=== PATIENT | female | born 1945 | race Caucasian/White ===

== ENCOUNTER 2019-01-12 15:44 | Inpatient (IN) | payer MEDICARE, MEDICAID ==
[~2019-01-12] VITALS: Ht 266.7 cm; Wt 101.2 kg
[~2019-01-12 15:44] MED LIST: CEPH-419 PO; LEVO112T25 PO; LOSA25TA96 PO
[2019-01-12 17:29] LABS: BASOPHILS # (AUTO) 0.1 X10'3 (0-0.2); BASOPHILS % (AUTO) 1.1 % (0-1); EOSINOPHILS % (AUTO) 0.4 % (0-6); HEMATOCRIT 45.6 % (35.0-45.0); HEMOGLOBIN 15.6 g/dl (12.0-16.0); LYMPHOCYTES % (AUTO) 34.7 % (21-51); MEAN CORPUSCULAR HEMOGLOBIN 32.8 PG (27.0-31.0); MEAN CORPUSCULAR HGB CONC 34.2 g/dL (33.0-36.5); MEAN PLATELET VOLUME 7.1 FL (7.4-10.4); MONOCYTES # (AUTO) 0.6 X10'3 (0-0.9); MONOCYTES % (AUTO) 6.4 % (2-12); NEUTROPHILS % (AUTO) 57.4 % (42-75); PLATELET COUNT 278 X10'3 (140-440); RED BLOOD COUNT 4.75 X10'6 (4.20-5.60); RED CELL DISTRIBUTION WIDTH 13.5 % (11.5-14.5); WHITE BLOOD COUNT 8.7 X10'3 (4.5-11.0)
[2019-01-12 17:44] LABS: ALANINE AMINOTRANSFERASE 37 U/L (12-78); ALBUMIN 3.4 G/DL (3.4-5.0); ALBUMIN/GLOBULIN RATIO 1.1 (1.1-1.5); ALKALINE PHOSPHATASE 89 IU/L (46-116); ANION GAP 8 (8-16); ASPARTATE AMINO TRANSFERASE 15 U/L (10-37); BILIRUBIN,TOTAL 0.3 MG/DL (0.1-1.0); BLOOD UREA NITROGEN 11 MG/DL (7-18); BUN/CREATININE RATIO 14.5 (6.6-38.0); CALCIUM 9.4 MG/DL (8.5-10.1); CHLORIDE 106 MMOL/L (99-107); CREATININE 0.76 MG/DL (0.40-0.90); GLUCOSE 88 MG/DL (70-104); POTASSIUM 3.7 MMOL/L (3.5-5.1); SODIUM 142 MMOL/L (135-145); TOTAL CARBON DIOXIDE 27.6 MMOL/L (24-32); TOTAL PROTEIN 6.6 G/DL (6.4-8.2); eGFR 74 ML/MIN
[2019-01-12 17:49] LABS: MAGNESIUM 1.7 MG/DL (1.5-2.4)
--- NOTE | 2019-01-12 17:56 | NUR ---
PAGED DR VIDAL BUT SHE SUGGESTED WE WAIT TO PAGE THE NIGHT DUE TO HER NOT HAVING TIME FOR ANOTHER ADMIT SO WE WILL WAIT UNTIL 7PM.
[2019-01-12] MEDS ORDERED: ESTR0.5T PO (18:03)
[2019-01-12] MEDS ORDERED: OMEP-50 PO (18:03)
--- NOTE | 2019-01-12 19:21 | NUR ---
CALLED TO PT'S BEDSIDE, PT C/O "FEELING FUNNY" WHEN HEART RATE DROPS. PT DENIES CP OR SOB, BUT STATES HAS "PRESSURE". O2 PLACED AT 2L FOR PRESSURE, AWAITING HOSPITALIST
--- NOTE | 2019-01-12 19:37 | NUR ---
MEAL TRAY PROVIDED WITH WATER
[2019-01-12] MEDS ORDERED: potassium Cl 20 mEq SR tablet PO PRN ×2 (19:40)
[2019-01-12] MEDS ORDERED: mag hydrox/Alum hydrox/simeth 30ml oral suspension PO PRN (19:40)
[2019-01-12] MEDS ORDERED: magnesium 2GM in 50ml NS 50 ML IV PRN (19:40)
[2019-01-12] MEDS ORDERED: potassium Cl 40MEQ/NS 500ml 500 ML IV PRN ×2 (19:40)
[2019-01-12] MEDS ORDERED: docusate sod 100mg capsule PO PRN (19:40)
[2019-01-12] MEDS ORDERED: acetaminophen 325mg tablet PO PRN (19:40)
[2019-01-12] MEDS ORDERED: magnesium 4gm in 100ml NS 100 ML IV PRN (19:40)
[2019-01-12] MEDS ORDERED: ondansetron/PF 4mg/2ml inj IV PRN (19:40)
--- NOTE | 2019-01-12 19:40 | NUR ---
PT SITTING UP AT BEDSIDE EATING DINNER, NO FURTHER EPISODES OF "PRESSURE" NOTED BY PT OR FAMILY.
[2019-01-12] MEDS ORDERED: nicotine 21mg patch - 24 hr TD ONE (21:25)
[2019-01-12] MEDS ORDERED: iohexol 350MG/ML 100ml bottle IV ONE (21:36)
[2019-01-12] MEDS: normal saline 1000ml 1,000 ML IV SCH (23:20)
[2019-01-13] VITALS (24 sets, daily range): BP systolic 112–153; BP diastolic 44–85
--- NOTE | 2019-01-13 00:30 | NUR ---
Patient in room . I have received report from Yudelka THOMAS and had the opportunity to ask questions and assume patient care.
--- NOTE | 2019-01-13 02:53 | NUR ---
Heart block type 2 noted,
[2019-01-13 05:50] LABS: ALANINE AMINOTRANSFERASE 29 U/L (12-78); ALKALINE PHOSPHATASE 81 IU/L (46-116); ANION GAP 8 (8-16); ASPARTATE AMINO TRANSFERASE 13 U/L (10-37); BASOPHILS # (AUTO) 0.1 X10'3 (0-0.2); BASOPHILS % (AUTO) 1.2 % (0-1); BILIRUBIN,TOTAL 0.4 MG/DL (0.1-1.0); BLOOD UREA NITROGEN 14 MG/DL (7-18); BUN/CREATININE RATIO 15.9 (6.6-38.0); CALCIUM 9.4 MG/DL (8.5-10.1); CHLORIDE 107 MMOL/L (99-107); CREATININE 0.88 MG/DL (0.40-0.90); EOSINOPHILS # (AUTO) 0.1 X10'3 (0-0.9); EOSINOPHILS % (AUTO) 0.7 % (0-6); GLUCOSE 97 MG/DL (70-104); HEMATOCRIT 41.6 % (35.0-45.0); HEMOGLOBIN 14.1 g/dl (12.0-16.0); LYMPHOCYTES # (AUTO) 3.2 X10'3 (1.1-4.8); LYMPHOCYTES % (AUTO) 41.8 % (21-51); MEAN CORPUSCULAR HEMOGLOBIN 32.6 PG (27.0-31.0); MEAN CORPUSCULAR HGB CONC 33.8 g/dL (33.0-36.5); MEAN CORPUSCULAR VOLUME 96.3 FL (78-98); MEAN PLATELET VOLUME 7.4 FL (7.4-10.4); MONOCYTES # (AUTO) 0.6 X10'3 (0-0.9); MONOCYTES % (AUTO) 8.3 % (2-12); NEUTROPHILS # (AUTO) 3.7 X10'3 (1.8-7.7); PLATELET COUNT 237 X10'3 (140-440); POTASSIUM 3.9 MMOL/L (3.5-5.1); RED BLOOD COUNT 4.32 X10'6 (4.20-5.60); RED CELL DISTRIBUTION WIDTH 13.8 % (11.5-14.5); SODIUM 141 MMOL/L (135-145); TOTAL CARBON DIOXIDE 26.1 MMOL/L (24-32); WHITE BLOOD COUNT 7.7 X10'3 (4.5-11.0); eGFR 63 ML/MIN
[2019-01-13 05:51] LABS: CHOL/HDL RATIO 3.8 (0.00-4.99); CHOLESTEROL 180 MG/DL (0-200); HDL CHOLESTEROL 47 MG/DL (35-60); LDL CHOLESTEROL 121 MG/DL (50-100); MAGNESIUM 1.8 MG/DL (1.5-2.4); TRIGLYCERIDES 106 MG/DL (20-135)
--- NOTE | 2019-01-13 06:25 | NUR ---
Patient in room PCU 3026. I have received report from Zee THOMAS and had the opportunity to ask questions and assume patient care.
--- NOTE | 2019-01-13 06:47 | NUR ---
Problems reprioritized. Patient report given, questions answered & plan of care reviewed with Janet THOMAS.
--- NOTE | 2019-01-13 07:49 | NUR ---
PAGER ID: [phone] Dr. Alan MESSAGE: Room 3026B Alayna Quinones low 40's call nurse Glenna [facility] 6024, received call back to give Atropine 0.5mg IV Once if symptomatic, MD is coming to see patient
[2019-01-13] MEDS ORDERED: atropine 1 MG/1 ML vial IV ONE (07:55)
[2019-01-13] MEDS ORDERED: atropine 0.1mg/ml 10ml syringe IV ONE (08:00)
[2019-01-13] MEDS ORDERED: enoxaparin 40mg/0.4ml syringe SQ SCH (08:00)
[2019-01-13] MEDS: losartan 50mg tablet PO SCH (08:00)
[2019-01-13] MEDS: K and/or MAG REPLACEMENT MC SCH (08:00)
--- NOTE | 2019-01-13 08:15 | NUR ---
Dr. Alan at bedside, states he will discuss patient status with Dr. Morales.
--- NOTE | 2019-01-13 08:17 | NUR ---
Dr. Alan called, states to place patient on NPO status and he will place orders for stress test.
[2019-01-13] MEDS ORDERED: regadenoson 0.4mg/5ml syringe IV ONE ×2 (08:25→10:18)
[2019-01-13] MEDS ORDERED: aminophylline 250mg/10ml inj. IV PRN (08:25)
[2019-01-13] MEDS ORDERED: metoprolol tartrate 1mg/ml inj IV PRN (08:25)
[2019-01-13] MEDS ORDERED: nitroGLYCERIN 0.4mg SUBLingual tab SL PRN (08:25)
--- NOTE | 2019-01-13 08:34 | NUR ---
Paging ECHO to come do procedure.
[2019-01-13] MEDS: pantoprazole 40mg Tablet.DR PO SCH (08:49)
[2019-01-13] MEDS: levoTHYROXINE 112mcg tablet PO SCH (08:49)
[2019-01-13] MEDS: enoxaparin 100mg/ml syringe SUBCUT SCH ×2 (09:12→20:00)
--- NOTE | 2019-01-13 09:32 | NUR ---
Spoke to [facility] and vanesa Tucker to hold Cozaar x1 for stress test.
[2019-01-13] MEDS ORDERED: aminophylline inj. 10 ML IV ONE (10:18)
--- NOTE | 2019-01-13 11:11 | NUR ---
Patient went down for stress test at this time.
--- NOTE | 2019-01-13 12:40 | NUR ---
Arrived back from [facility].
--- NOTE | 2019-01-13 13:08 | NUR ---
Paged hosp, "Martha [phone], [phone] Alayna Quinones back from getting stress test, may she eat now?" Waiting on callback from hospitalist.
[2019-01-13] MEDS ORDERED: ringers solution, lacted 1,000 ML IV SCH (15:56)
[2019-01-13] MEDS ORDERED: ondansetron/PF 4mg/2ml inj IV PRN (16:00)
[2019-01-13] MEDS ORDERED: meperidine/PF 25mg/ml syringe IV PRN ×3 (16:00)
[2019-01-13] MEDS ORDERED: proCHLORperazine 10 MG/2 ml inj IV PRN (16:00)
--- NOTE | 2019-01-13 16:41 | NUR ---
Patient scheduled for PPM at 2030 tonight. Prep started. Patient NPO.
[2019-01-13] MEDS ORDERED: famotidine 20mg tablet PO ONE (17:35)
--- NOTE | 2019-01-13 17:56 | NUR ---
Pacemaker surgical preparation occurring at this time, procedure time moved up to 1930. Consent to be signed.
[2019-01-13] MEDS ORDERED: LIDOcaine 0.5% W/epiNEPHrine 1:200,000 50ml vial IJ ONE (18:00)
--- NOTE | 2019-01-13 18:15 | NUR ---
Patient in room PCU 3026. I have received report from Martha THOMAS and had the opportunity to ask questions and assume patient care.
--- NOTE | 2019-01-13 18:25 | NUR ---
Problems reprioritized. Patient report given, questions answered & plan of care reviewed with Janice THOMAS.
[2019-01-13] MEDS: normal saline 1000ml 1,000 ML IV SCH ×2 (19:15→23:12)
[2019-01-13] MEDS ORDERED: fentaNYL/PF 50MCG/1 ML 2ML syringe ONE ×2 (19:28→20:24)
[2019-01-13] MEDS ORDERED: MIDAZolam 5mg/5ml vial ONE (19:28)
[2019-01-13] MEDS ORDERED: ceFAZolin 1000mg inj ONE ×2 (19:30)
--- NOTE | 2019-01-13 20:50 | NUR ---
Received from OR via PCU BED, accompanied by Anesthesiologist DR. BRANDON and report given by Anesthesiolgist. PT FULLY AWAKE AND TALKING ON RA. PT SARAH WITH GOOD CSM. PULSES AND HAM CLERK WNL. DRESSING TO LT UPPER CHEST CDI. LT ARM IN SLING. POST PPM PLACEMENT EKG AND CXR DONE.
--- NOTE | 2019-01-13 21:20 | NUR ---
Report called to receiving nurse KARLY THOMAS. Transferred via PCU BED, NO Belongings BROUGHT TO RR. Special Issues communicated to receiving nurse.PACER REP INTO SPEEK TO PT. PT TO ROOM 3026B WHERE FAMILY WAS WAITING FOR HER. VSS ON RA
--- NOTE | 2019-01-13 21:30 | NUR ---
Patient returned from PPM placement via bed with manager of disaster recovery at bedside. Received report prior to patient's arrival and family had previously been updated by MD via telephone. Post op vital signs initiated. Patient denies pain and shows no s/s of distress. PPM dressing in place with a small amount of blood present. automotive design layout drafter stated that it was stable from the time she had come out from the procedure. Drainage circled. Will continue to monitor.
[2019-01-14] VITALS (8 sets, daily range): BP systolic 131–154; BP diastolic 60–81
[2019-01-14] MEDS: HYDROcodone/acetaminophen 10/325mg tab PO PRN ×3 (03:04→21:00)
--- NOTE | 2019-01-14 06:13 | NUR ---
Student Medication Administration: For this medication-pass time frame, all medication were reviewed, dispensed, administered and documented per hospital policy by Venita DIETZ. Student documentation: I have reviewed and agree with all interventions, assessments performed and documented by Venita DIETZ.
--- NOTE | 2019-01-14 06:13 | NUR ---
Problems reprioritized. Patient report given, questions answered & plan of care reviewed with Martha THOMAS & Glenna THOMAS.
--- NOTE | 2019-01-14 06:45 | NUR ---
Patient in room PCU 3026. I have received report from Janice THOMAS and had the opportunity to ask questions and assume patient care.
[2019-01-14 06:57] LABS: BASOPHILS # (AUTO) 0.1 X10'3 (0-0.2); BASOPHILS % (AUTO) 0.8 % (0-1); EOSINOPHILS # (AUTO) 0.1 X10'3 (0-0.9); EOSINOPHILS % (AUTO) 0.6 % (0-6); HEMOGLOBIN 14.2 g/dl (12.0-16.0); LYMPHOCYTES # (AUTO) 2.7 X10'3 (1.1-4.8); LYMPHOCYTES % (AUTO) 33.5 % (21-51); MEAN CORPUSCULAR HEMOGLOBIN 33.4 PG (27.0-31.0); MEAN CORPUSCULAR HGB CONC 34.7 g/dL (33.0-36.5); MEAN CORPUSCULAR VOLUME 96.4 FL (78-98); MEAN PLATELET VOLUME 7.6 FL (7.4-10.4); MONOCYTES # (AUTO) 0.6 X10'3 (0-0.9); MONOCYTES % (AUTO) 6.9 % (2-12); NEUTROPHILS # (AUTO) 4.7 X10'3 (1.8-7.7); NEUTROPHILS % (AUTO) 58.2 % (42-75); PLATELET COUNT 244 X10'3 (140-440); RED BLOOD COUNT 4.26 X10'6 (4.20-5.60); RED CELL DISTRIBUTION WIDTH 13.5 % (11.5-14.5); WHITE BLOOD COUNT 8.1 X10'3 (4.5-11.0)
[2019-01-14] MEDS: levoTHYROXINE 112mcg tablet PO SCH (07:03)
[2019-01-14 07:25] LABS: ALANINE AMINOTRANSFERASE 28 U/L (12-78); ALBUMIN 2.9 G/DL (3.4-5.0); ALBUMIN/GLOBULIN RATIO 0.9 (1.1-1.5); ALKALINE PHOSPHATASE 85 IU/L (46-116); ANION GAP 5 (8-16); ASPARTATE AMINO TRANSFERASE 15 U/L (10-37); BILIRUBIN,TOTAL 0.2 MG/DL (0.1-1.0); BLOOD UREA NITROGEN 13 MG/DL (7-18); BUN/CREATININE RATIO 15.9 (6.6-38.0); CALCIUM 9.5 MG/DL (8.5-10.1); CHLORIDE 107 MMOL/L (99-107); CREATININE 0.82 MG/DL (0.40-0.90); GLUCOSE 112 MG/DL (70-104); MAGNESIUM 1.8 MG/DL (1.5-2.4); POTASSIUM 4.2 MMOL/L (3.5-5.1); SODIUM 144 MMOL/L (135-145); TOTAL CARBON DIOXIDE 31.7 MMOL/L (24-32); eGFR 68 ML/MIN
[2019-01-14] MEDS: losartan 50mg tablet PO SCH (07:35)
[2019-01-14] MEDS: pantoprazole 40mg Tablet.DR PO SCH (07:35)
[2019-01-14] MEDS: enoxaparin 100mg/ml syringe SUBCUT SCH (07:36)
[2019-01-14] MEDS: K and/or MAG REPLACEMENT MC SCH (08:00)
--- NOTE | 2019-01-14 08:00 | NUR ---
Phys. assessment done via Rossy Daniel RN correctly inputed per this nurse.
--- NOTE | 2019-01-14 12:15 | NUR ---
Made Dr. Peterson aware of mid morning bleeding around pacer site. Let him know Dr. Alan was aware and that we dc'd blood thinning medications and placed pressure dressing to site. Dr. Chapman states to call him back if bleeding continues.
[2019-01-14] MEDS: nicotine 14mg patch - 24hr TD SCH (16:16)
--- NOTE | 2019-01-14 18:51 | NUR ---
Problems reprioritized. Patient report given, questions answered & plan of care reviewed with Zee THOMAS.
--- NOTE | 2019-01-14 19:00 | NUR ---
Patient in room PCU 3026. I have received report from Glenna THOMAS and had the opportunity to ask questions and assume patient care. Pt resting on bed, using her phone, and wanting to go home
[2019-01-15 03:00] VITALS: BP 153/83
[2019-01-15] MEDS: HYDROcodone/acetaminophen 10/325mg tab PO PRN (03:23)
[2019-01-15 05:41] LABS: BASOPHILS # (AUTO) 0.1 X10'3 (0-0.2); BASOPHILS % (AUTO) 0.8 % (0-1); EOSINOPHILS # (AUTO) 0.1 X10'3 (0-0.9); EOSINOPHILS % (AUTO) 1.1 % (0-6); HEMATOCRIT 38.9 % (35.0-45.0); HEMOGLOBIN 13.5 g/dl (12.0-16.0); LYMPHOCYTES # (AUTO) 3.2 X10'3 (1.1-4.8); LYMPHOCYTES % (AUTO) 38.8 % (21-51); MEAN CORPUSCULAR HEMOGLOBIN 33.2 PG (27.0-31.0); MEAN CORPUSCULAR HGB CONC 34.7 g/dL (33.0-36.5); MEAN CORPUSCULAR VOLUME 95.7 FL (78-98); MEAN PLATELET VOLUME 7.7 FL (7.4-10.4); MONOCYTES # (AUTO) 0.8 X10'3 (0-0.9); MONOCYTES % (AUTO) 9.4 % (2-12); NEUTROPHILS # (AUTO) 4.1 X10'3 (1.8-7.7); NEUTROPHILS % (AUTO) 49.9 % (42-75); PLATELET COUNT 216 X10'3 (140-440); RED BLOOD COUNT 4.06 X10'6 (4.20-5.60); RED CELL DISTRIBUTION WIDTH 13.8 % (11.5-14.5); WHITE BLOOD COUNT 8.3 X10'3 (4.5-11.0)
[2019-01-15 06:00] VITALS: BP 141/66
[2019-01-15 06:03] LABS: ALANINE AMINOTRANSFERASE 38 U/L (12-78); ALKALINE PHOSPHATASE 83 IU/L (46-116); ANION GAP 8 (8-16); ASPARTATE AMINO TRANSFERASE 25 U/L (10-37); BILIRUBIN,TOTAL 0.5 MG/DL (0.1-1.0); BLOOD UREA NITROGEN 13 MG/DL (7-18); BUN/CREATININE RATIO 15.9 (6.6-38.0); CALCIUM 9.2 MG/DL (8.5-10.1); CHLORIDE 106 MMOL/L (99-107); CREATININE 0.82 MG/DL (0.40-0.90); GLUCOSE 96 MG/DL (70-104); MAGNESIUM 1.7 MG/DL (1.5-2.4); POTASSIUM 3.5 MMOL/L (3.5-5.1); SODIUM 142 MMOL/L (135-145); TOTAL CARBON DIOXIDE 28.1 MMOL/L (24-32); eGFR 68 ML/MIN
--- NOTE | 2019-01-15 06:27 | NUR ---
Problems reprioritized. Patient report given, questions answered & plan of care reviewed with Willi THOMAS.
--- NOTE | 2019-01-15 06:51 | NUR ---
Patient in room PCU 3026. I have received report from Zee THOMAS and had the opportunity to ask questions and assume patient care.
[2019-01-15] MEDS ORDERED: levoTHYROXINE 112mcg tablet PO SCH (07:00)
[2019-01-15] MEDS: losartan 50mg tablet PO SCH (07:21)
[2019-01-15] MEDS: nicotine 14mg patch - 24hr TD SCH (07:21)
[2019-01-15] MEDS: pantoprazole 40mg Tablet.DR PO SCH (07:21)
[2019-01-15] MEDS: K and/or MAG REPLACEMENT MC SCH (08:00)
[2019-01-15] MEDS ORDERED: NICO-631 TD (09:39)
--- NOTE | 2019-01-15 10:10 | NUR ---
Patient discharged stable, all belongings returned to patient, PIV removed, cannula intact, tele box removed, dishcarge instruction given, pt verbalized understanding, pt transported to front of hospital via w/c by staff to private vehicle, pt home with family, prescription called in to [facility] pharmacy in [place], [place]. Pt left floor at 1010
--- NOTE | 2019-01-15 10:41 | NUR ---
[place] documentation: I have reviewed and agree with all interventions, assessments performed and documented by Glenna THOMAS. [place] Medication Administration: For this medication-pass time frame, all medication were reviewed, dispensed, administered and documented per hospital policy by Glenna THOMAS.
== END 2019-01-15 10:10 | disposition home or self-care (01) | DRG 244 ==
LOC: ER 15:45 → ED HOLD 01-13 00:33 → PCU 3S 01-13 01:12
PROVIDERS: ADMIT Family Medicine; ATTEND Family Medicine
PROC: B32T1ZZ Computerized Tomography (CT Scan) of Left Pulmonary Artery using Low Osmolar Contrast (ICD-10-PCS; 2019-01-12)
PROC: B3201ZZ Computerized Tomography (CT Scan) of Thoracic Aorta using Low Osmolar Contrast (ICD-10-PCS; 2019-01-12)
PROC: B32S1ZZ Computerized Tomography (CT Scan) of Right Pulmonary Artery using Low Osmolar Contrast (ICD-10-PCS; 2019-01-12)
PROC: 02H63JZ Insertion of Pacemaker Lead into Right Atrium, Percutaneous Approach (ICD-10-PCS; 2019-01-13)
PROC: 02HK3JZ Insertion of Pacemaker Lead into Right Ventricle, Percutaneous Approach (ICD-10-PCS; 2019-01-13)
PROC: 4A02XM4 Measurement of Cardiac Total Activity, External Approach (ICD-10-PCS; 2019-01-13)
PROC: 3E033HZ Introduction of Radioactive Substance into Peripheral Vein, Percutaneous Approach (ICD-10-PCS; 2019-01-13)
PROC: 0JH606Z Insertion of Pacemaker, Dual Chamber into Chest Subcutaneous Tissue and Fascia, Open Approach (ICD-10-PCS; principal; 2019-01-13 19:22)
DX: I44.1 Atrioventricular block, second degree (principal); I16.0 Hypertensive urgency; E03.9 Hypothyroidism, unspecified; G89.29 Other chronic pain; I10 Essential (primary) hypertension; I45.9 Conduction disorder, unspecified; M19.90 Unspecified osteoarthritis, unspecified site; F32.9 Major depressive disorder, single episode, unspecified; M54.9 Dorsalgia, unspecified; Z60.2 Problems related to living alone; F17.210 Nicotine dependence, cigarettes, uncomplicated; E66.9 Obesity, unspecified; J44.9 Chronic obstructive pulmonary disease, unspecified; Z90.711 Acquired absence of uterus with remaining cervical stump; Z90.49 Acquired absence of other specified parts of digestive tract; Z88.6 Allergy status to analgesic agent; Z88.2 Allergy status to sulfonamides; Z88.1 Allergy status to other antibiotic agents; Z88.8 Allergy status to other drugs, medicaments and biological substances; Z79.890 Hormone replacement therapy; Z79.899 Other long term (current) drug therapy; Z80.3 Family history of malignant neoplasm of breast; Z82.3 Family history of stroke; Z82.49 Family history of ischemic heart disease and other diseases of the circulatory system; Z71.6 Tobacco abuse counseling; Y92.89 Other specified places as the place of occurrence of the external cause
CPT/HCPCS: 36415; 71045; 71048; 71275; 76000; 78452; 80053; 80061; 83735; 83880; 84443; 84484; 85025; 87070; 93005; 93017; 93306; 96374; 99285; A4565; A6257; A6402; A7000; A9500; C1785; G0378; J0280; J0461; J0690; J1650; J2175; J2250; J3010; J3490; J7030; J7120; Q9967

== ENCOUNTER 2021-01-17 05:42 | Day surgery (SDC) | payer MEDICARE, MEDICAID ==
[2021-01-10 11:51] LABS: BASOPHILS # (AUTO) 0.1 X10'3 (0-0.2); EOSINOPHILS # (AUTO) 0.1 X10'3 (0-0.9); EOSINOPHILS % (AUTO) 0.7 % (0-6); LYMPHOCYTES # (AUTO) 2.8 X10'3 (1.1-4.8); MEAN CORPUSCULAR HEMOGLOBIN 32.3 PG (27.0-31.0); MEAN CORPUSCULAR HGB CONC 33.5 g/dL (33.0-36.5); MEAN CORPUSCULAR VOLUME 96.4 FL (78-98); MEAN PLATELET VOLUME 7.2 FL (7.4-10.4); MONOCYTES # (AUTO) 0.9 X10'3 (0-0.9); MONOCYTES % (AUTO) 7.3 % (2-12); NEUTROPHILS # (AUTO) 8.4 X10'3 (1.8-7.7); PRE OP HEMATOCRIT 46.7 % (35.0-45.0); PRE OP HEMOGLOBIN 15.6 g/dL (12.0-16.0); PRE OP PLATELET COUNT 309 X10'3 (140-440); RED BLOOD COUNT 4.84 X10'6 (4.20-5.60); RED CELL DISTRIBUTION WIDTH 14.3 % (11.5-14.5)
[2021-01-10 12:05] LABS: ALBUMIN 3.7 G/DL (3.4-5.0); ALKALINE PHOSPHATASE 103 IU/L (46-116); BLOOD UREA NITROGEN 16 MG/DL (7-18); BUN/CREATININE RATIO 19.5 (6.6-38.0); CALCIUM 9.6 MG/DL (8.5-10.1); CHLORIDE 106 MMOL/L (99-107); CREATININE 0.82 MG/DL (0.40-0.90); PRE OP ALT 22 U/L (30-65); PRE OP ANION GAP 11 (8-16); PRE OP AST 14 U/L (10-37); PRE OP BILIRUB, TOTAL 0.6 MG/DL (0.0-1.0); PRE OP GLUCOSE 97 MG/DL (70-104); PRE OP SODIUM 142 MMOL/L (135-145); TOTAL CARBON DIOXIDE 25.4 MMOL/L (24-32); TOTAL PROTEIN 7.3 G/DL (6.4-8.2); eGFR 68 ML/MIN
[~2021-01-17] VITALS: Ht 162.6 cm; Wt 99.0 kg
[~2021-01-17 05:42] MED LIST changes: +ALBUTEROL INH; +BUDE10.22 INH; +BUPR75TA12 PO; -CEPH-419 PO; +ESTR0.5T PO; +HYDR-3972 PO; +OMEP-50 PO; +VIT B12 FOLIC ACID PO; +VIT D3 PO; +albuterol 2.5 MG/3 ML nebule NEB ONE; +cefazolin/dext.iso 2gm/100ml 100 ML IV ONE; +famotidine 20mg tablet PO ONE; +ringers solution, lacted 1,000 ML IV SCH
[2021-01-17] MEDS ORDERED: BUPIVAcaine/PF 2.5mg/ml (0.25%) 10ml vial ONE ×2 (06:43→08:17)
[2021-01-17] MEDS ORDERED: hydrALAZINE 20mg/ml inj. IV PRN (07:10)
[2021-01-17] MEDS ORDERED: fentaNYL/PF 50MCG/1 ML 2ML syringe IV PRN ×2 (07:10)
[2021-01-17] MEDS ORDERED: ringers solution, lacted 1,000 ML IV SCH (07:10)
[2021-01-17] MEDS ORDERED: HYDROmorphone/PF 0.2 MG/ML SYRINGE IV PRN ×2 (07:10)
[2021-01-17] MEDS ORDERED: labetalol 20mg/4ml (5mg/ml) syringe IV PRN (07:10)
[2021-01-17] MEDS ORDERED: ondansetron/PF 4mg/2ml inj IV PRN (07:10)
[2021-01-17 07:22] VITALS: BP 156/71
[2021-01-17] MEDS ORDERED: LIDOcaine 0.5% (5mg/ml) 50ml vial ONE (07:49)
[2021-01-17] MEDS ORDERED: fentaNYL/PF 50MCG/1 ML 2ML syringe ONE (07:54)
[2021-01-17] MEDS ORDERED: MIDAZolam 1mg/ml 10ml vial ONE (07:55)
[2021-01-17] MEDS ORDERED: triamcinolone acetonide 40mg/ml inj ONE (08:43)
[2021-01-17] MEDS ORDERED: LIDOcaine 1% (10mg/ml) 2ml vial ONE (08:43)
[2021-01-17 08:48] VITALS: BP 122/65
--- NOTE | 2021-01-17 08:48 | NUR ---
Received from OR via [facility] IN STABLE CONDITION , accompanied by Anesthesiologist and PAROLE DIRECTOR report given by Darling. Addendum: 01/17/21 at 0902 by Nette Taylor RN Amended: Links added.
[2021-01-17 09:00] VITALS: BP 140/69
[2021-01-17 09:10] VITALS: BP 90/72
[2021-01-17 09:20] VITALS: BP 133/85
[2021-01-17 09:30] VITALS: BP 138/64
--- NOTE | 2021-01-17 09:48 | NUR ---
PATIENT DISCHARGED HOME IN STABLE CONDITION VIA WHEELCHAIR WITH VOLUNTEER AFTER PIV DC'D WITH WRITTEN AND VERBAL DISCHARGE INSTRUCTIONS GIVEN. PATIENT GAVE VERBAL UNDERSTANDING OF INSTRUCTIONS GIVEN PATIENT LEFT FACILITY WITH DAUGHTER. Addendum: 01/17/21 at 0953 by Nette Taylor RN Amended: Links added.
== END 2021-01-17 09:48 | disposition home or self-care (01) ==
LOC: PAS 05:42
PROVIDERS: ATTEND Orthopaedic Surgery Hand Surgery
DX: M18.0 Bilateral primary osteoarthritis of first carpometacarpal joints (principal); F41.1 Generalized anxiety disorder; G89.4 Chronic pain syndrome; F17.210 Nicotine dependence, cigarettes, uncomplicated; M17.11 Unilateral primary osteoarthritis, right knee; I10 Essential (primary) hypertension; J44.9 Chronic obstructive pulmonary disease, unspecified; F32.9 Major depressive disorder, single episode, unspecified; K21.9 Gastro-esophageal reflux disease without esophagitis; M19.90 Unspecified osteoarthritis, unspecified site; E66.9 Obesity, unspecified; Z68.37 Body mass index [BMI] 37.0-37.9, adult; Z90.49 Acquired absence of other specified parts of digestive tract; Z90.710 Acquired absence of both cervix and uterus; Z95.0 Presence of cardiac pacemaker; Z98.890 Other specified postprocedural states; Z88.8 Allergy status to other drugs, medicaments and biological substances; Z88.1 Allergy status to other antibiotic agents; Z88.2 Allergy status to sulfonamides; Z72.89 Other problems related to lifestyle
CPT/HCPCS: 20600; 25310; 25447; 36415; 71046; 80053; 82948; 85025; 93005; 94640; A6222; J2001; J2250; J3010; J3301; J3490; J7120; A4215; A4618

== ENCOUNTER 2022-08-21 08:59 | Day surgery (SDC) | payer MEDICARE, MEDICAID ==
[2022-08-12 15:29] LABS: BASOPHILS # (AUTO) 0.1 X10'3 (0-0.2); BASOPHILS % (AUTO) 0.9 % (0-1); EOSINOPHILS # (AUTO) 0.1 X10'3 (0-0.9); LYMPHOCYTES # (AUTO) 2.5 X10'3 (1.1-4.8); LYMPHOCYTES % (AUTO) 29.1 % (21-51); MEAN CORPUSCULAR HEMOGLOBIN 32.2 PG (27.0-31.0); MEAN CORPUSCULAR HGB CONC 33.8 g/dL (33.0-36.5); MEAN CORPUSCULAR VOLUME 95.3 FL (78-98); MEAN PLATELET VOLUME 7.1 FL (7.4-10.4); MONOCYTES # (AUTO) 0.7 X10'3 (0-0.9); NEUTROPHILS # (AUTO) 5.3 X10'3 (1.8-7.7); PRE OP HEMATOCRIT 46.1 % (35.0-45.0); PRE OP HEMOGLOBIN 15.6 g/dL (12.0-16.0); PRE OP PLATELET COUNT 321 X10'3 (140-440); RED BLOOD COUNT 4.84 X10'6 (4.20-5.60); RED CELL DISTRIBUTION WIDTH 14.2 % (11.5-14.5)
[2022-08-12 15:45] LABS: ALBUMIN 3.5 G/DL (3.4-5.0); ALBUMIN/GLOBULIN RATIO 1.1 (1.1-1.5); ALKALINE PHOSPHATASE 120 IU/L (46-116); BLOOD UREA NITROGEN 9 MG/DL (7-18); CALCIUM 9.7 MG/DL (8.5-10.1); CHLORIDE 105 MMOL/L (99-107); PRE OP ALT 33 U/L (30-65); PRE OP ANION GAP 7 (8-16); PRE OP AST 19 U/L (10-37); PRE OP BILIRUB, TOTAL 0.5 MG/DL (0.0-1.0); PRE OP GLUCOSE 104 MG/DL (70-104); PRE OP POTASSIUM 3.7 MMOL/L (3.4-5.1); PRE OP SODIUM 141 MMOL/L (135-145); TOTAL CARBON DIOXIDE 29.4 MMOL/L (24-32); TOTAL PROTEIN 6.8 G/DL (6.4-8.2); eGFR 61 ML/MIN
[~2022-08-21] VITALS: Ht 162.6 cm; Wt 100.9 kg
[~2022-08-21 08:59] MED LIST changes: +BUPR-297 PO; -BUPR75TA12 PO; -ESTR0.5T PO; +ESTR42.510 VG; +GLUC-95 PO; +HYDR12.55 PO; +LACT1TAB27 PO; -OMEP-50 PO; +OMEP20CA16 PO; -albuterol 2.5 MG/3 ML nebule NEB ONE; -cefazolin/dext.iso 2gm/100ml 100 ML IV ONE; +clindamycin-Cleocin 900mg/D5W 50 ML IV ONE
[2022-08-21 11:48] VITALS: BP 133/83
[2022-08-21 11:54] VITALS: BP 133/83
[2022-08-21] MEDS ORDERED: ringers solution, lacted 1,000 ML IV SCH (12:15)
[2022-08-21] MEDS ORDERED: meperidine/PF 25mg/ml syringe IV PRN ×3 (12:15)
[2022-08-21] MEDS ORDERED: fentaNYL/PF 50MCG/1 ML 2ML syringe IV PRN ×2 (12:15)
[2022-08-21] MEDS ORDERED: labetalol 20mg/4ml (5mg/ml) syringe IV PRN (12:15)
[2022-08-21] MEDS ORDERED: hydrALAZINE 20mg/ml inj. IV PRN (12:15)
[2022-08-21] MEDS ORDERED: proCHLORperazine 10 MG/2 ml inj IV PRN (12:15)
[2022-08-21] MEDS ORDERED: ondansetron/PF 4mg/2ml inj IV PRN (12:15)
[2022-08-21] MEDS ORDERED: acetaminophen 1,000mg/100ml IV 100 ML IV PRN (12:15)
[2022-08-21] MEDS ORDERED: BUPIVAcaine/PF 5 mg/ml 10ml ONE (13:59)
[2022-08-21] MEDS ORDERED: BUPIVAcaine/PF 2.5 mg/ml (0.25%) 30ml vial ONE (14:19)
[2022-08-21] MEDS ORDERED: fentaNYL/PF 50MCG/1 ML 2ML syringe ONE (14:37)
[2022-08-21] MEDS ORDERED: LIDOcaine 0.5% (5mg/ml) 50ml vial ONE (14:38)
[2022-08-21] MEDS ORDERED: midazolam 1 mg/ML 2ml injection ONE (14:38)
[2022-08-21] MEDS ORDERED: propofol inj 20 ML IV ONE ×2 (15:09)
[2022-08-21 15:38] VITALS: BP 128/72
--- NOTE | 2022-08-21 15:38 | NUR ---
Received from OR via [facility] , accompanied by Anesthesiologist FREEMAN and report given by Anesthesiolgist. PATIENT WITH 20G PIV IN RIGHT UE RUNNING LR AT 100.DENIES PAIN AT THIS TIME. PATIENT WITH SPLINT TO THUMB AND WRIST ON LEFT THAT IS CDI. + CAP REFILL AND FINGERS ARE PWD. + BLANCHING. DENIES PAIN AT THIS TIME. Addendum: 08/21/22 at 1548 by Kulwant Mtz RN, RN Amended: Links added.
[2022-08-21 15:40] VITALS: BP 128/72
[2022-08-21 15:50] VITALS: BP 144/72
[2022-08-21 16:00] VITALS: BP 144/80
--- NOTE | 2022-08-21 16:18 | NUR ---
ALL DISCHARGE CRITERIA HAS BEEN MET. VSS, PAIN AT A TOLERABLE LEVEL, ABLE TO SAFELY AMBULATE AND TRANSFER SELF. IV TAKEN OUT WITHOUT ANY COMPLICATIONS. ALL DISCHARGE INSTRUCTIONS COVERED WITH PATIENT AND ALL QUESTIONS ANSWERED. PATIENT TAKEN OUT VIA WHEELCHAIR TO PERSONAL VEHICLE WHERE FAMILY/FRIEND DROVE PATIENT HOME. Addendum: 08/21/22 at 1635 by Kulwant Mtz RN, RN Amended: Links added.
== END 2022-08-21 16:18 | disposition home or self-care (01) ==
LOC: PAS 08:59
PROVIDERS: ATTEND Orthopaedic Surgery Hand Surgery
DX: M18.12 Unilateral primary osteoarthritis of first carpometacarpal joint, left hand (principal); F41.9 Anxiety disorder, unspecified; G89.4 Chronic pain syndrome; M17.0 Bilateral primary osteoarthritis of knee; K21.9 Gastro-esophageal reflux disease without esophagitis; F32.A Depression, unspecified; I10 Essential (primary) hypertension; Z95.0 Presence of cardiac pacemaker; J44.9 Chronic obstructive pulmonary disease, unspecified; F17.210 Nicotine dependence, cigarettes, uncomplicated; Z79.899 Other long term (current) drug therapy; Z90.710 Acquired absence of both cervix and uterus; Z90.49 Acquired absence of other specified parts of digestive tract; Z98.890 Other specified postprocedural states; Z88.8 Allergy status to other drugs, medicaments and biological substances; Z88.2 Allergy status to sulfonamides; Z88.1 Allergy status to other antibiotic agents; Z91.040 Latex allergy status
CPT/HCPCS: 25312; 25447; 36415; 80053; 82948; 85025; A6222; J2250; J2704; J3010; J3490; J7030; J7120; Z7506; Z7512; A4215; A4618; A6449; A7000